=== PATIENT | male | born 1975 | race Caucasian/White ===

== ENCOUNTER 2023-09-21 20:00 | Emergency (ER) | payer BC, SELFPAY ==
--- NOTE | ~2023-09-21 | XR_ITS ---
EXAMINATION: XR FOOT, LEFT XR ANKLE, LEFT CLINICAL INFORMATION: Pain and edema left foot and ankle COMPARISON: None available. TECHNIQUE: 2 views of the left ankle 3 views the left foot FINDINGS: No acute visible fracture or dislocation. Ankle mortise is symmetric. Joint space alignment are maintained. Slight soft tissue prominence along the dorsum of the midfoot. XR/XR ankle LT 2V IMPRESSION: 1. No acute visible fracture or dislocation. 2. Slight soft tissue prominence along the dorsum of the midfoot.
--- NOTE | ~2023-09-21 | XR_ITS ---
EXAMINATION: XR FOOT, LEFT XR ANKLE, LEFT CLINICAL INFORMATION: Pain and edema left foot and ankle COMPARISON: None available. TECHNIQUE: 2 views of the left ankle 3 views the left foot FINDINGS: No acute visible fracture or dislocation. Ankle mortise is symmetric. Joint space alignment are maintained. Slight soft tissue prominence along the dorsum of the midfoot. XR/XR foot LT 2V IMPRESSION: 1. No acute visible fracture or dislocation. 2. Slight soft tissue prominence along the dorsum of the midfoot.
[2023-09-21 21:17] VITALS: BP 146/82; PULSE 104; RESP 16; TEMP 37.2; O2SAT 98; BMI 27.3
--- NOTE | 2023-09-22 00:29 | ED.GENADULT ---
HPI - General Adult General Chief complaint: Extremity Injury, Lower Stated complaint: Left swollen ankle, no injury Time Seen by Provider: 09/22/23 00:16 Source: patient, RN notes reviewed and old records reviewed Mode of arrival: ambulatory Limitations: no limitations History of Present Illness HPI narrative: 48-year-old male presents for evaluation of left foot pain. Patient reports his pain started yesterday. He denies any trauma to the foot. He has pain to the medial aspect the left ankle and top of the left foot He states that he has had a similar episode once in the past a few years ago. He was sent to a specialist but his symptoms resolved prior to seeing the specialist Therefore he does not carry a diagnosis of anything causing the pain His pain is worse with walking Related Data Previous Rx's Medication Instructions Recorded colchicine (gout) 0.6 mg tablet 0.6 mg PO DAILY #14 tabs 09/22/23 ibuprofen 600 mg tablet 600 mg PO Q6H PRN pain #20 tabs 09/22/23 prednisone 20 mg tablet 40 mg (2 x 20 mg) PO DAILY #8 tabs 09/22/23 Allergies Allergy/AdvReac Type Severity Reaction Status Date / Time No Known Allergies Allergy Verified 09/21/23 21:16 Review of Systems Constitutional: Constitutional: Denies chills and Denies fever(s) Musculoskeletal: Musculoskeletal: Reports arthralgias Integumentary/Breasts: Skin/Breast: Denies erythema and Denies wounds PMFSH Social History Social History Smoked in Last 30 Days: No Use of substances other than those prescribed or required for medical reasons: No Advance Directives: No Advance Directives Information Provided: No Physical Exam ED Vital Signs: Vital Signs - 24 hr 09/21/23 21:17 Temperature 98.9 F Pulse Rate 104 H Respiratory Rate 16 Blood Pressure 146/82 H Pulse Oximetry 98 Oxygen Delivery Method Room Air BMI result Body Mass Index 27.3 Const General: healthy appearing, comfortable, no acute distress, alert and awake Nutritional Appearance: well nourished Orientation/consciousness: patient oriented x3 HENMT Head: Yes normocephalic and Yes atraumatic Eyes Eyelids: Yes eyelids normal Conjunctivae: conjunctivae normal Sclerae: sclerae normal Corneas: corneas normal Pupils: Equal, round and reactive pupils present EOM: EOMs intact bilaterally Neck Neck: Yes full ROM Resp Effort & Inspection: normal respiratory effort, able to speak in complete sentences and not labored Skin General skin exam: elasticity normal Neuro General: patient oriented x3 Cranial nerves: Yes Equal, round and reactive pupils present and Yes Bilaterally intact EOM present Cognition (Neuro): normal cognition Extrem Other: Patient has mild edema to the medial aspect of the left ankle anterior to the medial malleolus extending towards the dorsum of the left proximal midfoot. There is faint erythema, no increased warmth or open wounds. No calf tenderness, palpable cords Medical Decision Making Medical Decision Making MDM Narrative: 48-year-old male presents for evaluation of atraumatic left foot/ankle pain. His x-ray shows no evidence of fracture. He has no calf pain, tenderness or palpable cords on exam. No risk factors for DVT/PE. The clinical picture is most consistent with gout. Will treat with prednisone, colchicine, ibuprofen. He will follow-up with his PCP Differential Diagnosis Differential Diagnoses: The differential diagnosis associated with the presentation includes Gout Foot pain Ankle sprain Contusion DVT much less likely Independent Interpretation I performed an independent interpretation of an: Plain X-Ray (No obvious fracture of the left foot or ankle) Radiology Impression Discussion of test interpretation with radiology: I have reviewed the radiologist's reading. (No acute fracture. Slight soft tissue prominence of the left dorsum of the midfoot) Discharge Plan Discharge Clinical Impression: Acute pain of left foot Patient Disposition: Home, Self-Care Instructions: Gout (ED) Additional Instructions: Your x-ray shows some swelling to your foot/ankle but no bony injury or abnormality. Your pain is most likely related to gout Take the colchicine daily for 1 week. Use the prednisone for additional 4 days Use ibuprofen as needed for pain. Follow-up with your primary doctor Prescriptions: New prednisone 20 mg tablet 40 mg PO DAILY Qty: 8 0RF colchicine (gout) 0.6 mg tablet 0.6 mg PO DAILY Qty: 14 0RF ibuprofen 600 mg tablet 600 mg PO Q6H PRN (Reason: pain) Qty: 20 0RF
[2023-09-22] MEDS: predniSONE 20 MG TABLET 40 MG PO (00:41)
[2023-09-22] MEDS: Ibuprofen 600 MG TABLET PO (00:41)
[2023-09-22] MEDS: Colchicine 0.6 MG TABLET PO (01:05)
== END 2023-09-22 01:14 | disposition home or self-care (01) ==
PROVIDERS: Emergency Provider Emergency Medicine; PCP Internal Medicine
DX: M79.672 Pain in left foot (principal)
CPT/HCPCS: 73600; 73620; 99283; 99284